=== PATIENT | female | born 1975 ===

== ENCOUNTER 2016-11-07 07:16 | Day surgery (SDC) | payer BC, MEDICARE ==
[~2016-11-07] VITALS: Ht 160 cm; Wt 86.0 kg
[2016-11-07] MEDS ORDERED: SODIUM CHLORIDE 0.9% 1,000 ML IV SCH (07:30)
[2016-11-07 07:49] VITALS: BP 135/81
[2016-11-07] MEDS ORDERED: LIDOCAINE 1%, 20ML ONE (08:24)
[2016-11-07] MEDS ORDERED: MIDAZOLAM 1 MG/ML, 5ML ONE (08:47)
[2016-11-07] MEDS ORDERED: NALOXONE 1 MG/ML, 2ML ONE (08:48)
[2016-11-07] MEDS ORDERED: FLUMAZENIL 0.1 MG/1 ML, 5ML ONE (08:48)
[2016-11-07] MEDS ORDERED: FENTANYL PF 100 MCG/2ML ONE (08:48)
== END 2016-11-07 11:25 ==
LOC: OUT 07:16
PROVIDERS: ATTEND Family Medicine
DX: K75.9 Inflammatory liver disease, unspecified (principal); I10 Essential (primary) hypertension; E11.9 Type 2 diabetes mellitus without complications; Z87.440 Personal history of urinary (tract) infections
CPT/HCPCS: 36415; 47000; 76942; 85610; 88307; 88313; 99156; 99157; J2250; J3010; J3490; J2310

== ENCOUNTER → 2020-09-07 | Outpatient (CLI) | payer BC, MEDICARE | END | disposition home or self-care (01) | LOC: RAD 07:13 | PROVIDERS: ATTEND Transplant Surgery | DX: R74.8 Abnormal levels of other serum enzymes (principal); T86.49 Other complications of liver transplant; Z90.49 Acquired absence of other specified parts of digestive tract; Y83.9 Surgical procedure, unspecified as the cause of abnormal reaction of the patient, or of later complication, without mention of misadventure at the time of the procedure | CPT/HCPCS: 93975 ==